=== PATIENT | male | born 1945 | race Caucasian/White ===

== ENCOUNTER → 2017-06-20 16:10 | Outpatient (CLI) | payer MEDICARE, OTHER, MEDICAID ==
[~2017-06-20 16:10] MED LIST: AMBIEN10 MG PO; LEXAPRO20 MG PO; NORVASC10 MG PO; OMEPRAZOLE40 MG PO; ZOCOR10 MG PO
[2017-07-11 09:25] VITALS: BMI 30.1
== END | disposition home or self-care (01) ==
LOC: D.CT 16:10
DX: R79.1 Abnormal coagulation profile (principal)

== ENCOUNTER 2017-07-11 08:38 | Outpatient (CLI) | payer MEDICARE, OTHER, MEDICAID ==
[~2017-07-11] VITALS: Ht 177.8 cm; Wt 95.5 kg
[2017-07-11] MEDS ORDERED: NORVASC10 MG PO (09:17)
[2017-07-11] MEDS ORDERED: LEXAPRO20 MG PO (09:17)
[2017-07-11] MEDS ORDERED: OMEPRAZOLE40 MG PO (09:17)
[2017-07-11] MEDS ORDERED: ZOCOR10 MG PO (09:17)
[2017-07-11] MEDS ORDERED: AMBIEN10 MG PO (09:17)
[2017-07-11 09:25] VITALS: BP 132/91; Ht 177.8 cm; Wt 95.5 kg
[2017-07-11 09:28] LABS: BASOPHILS 0.3 % (0-2); EOSINOPHILS 2.1 % (0-7); HEMOGLOBIN 13.9 g/dL (13.5-17.5); IMMATURE GRANULOCYTES 0.5 % (0-5); LYMPHOCYTES 40.9 % (15-50); MCHC 33.1 g/dL (31.0-37.0); MCV 84.7 fL (80.0-100.0); MEAN PLATELET VOLUME 9.4 fL (7.4-10.4); MONOCYTES 10.1 % (2-11); NEUTROPHILS 46.1 % (40-80); PLATELET COUNT 226 10x3/uL (130-400); RBC 4.96 10x6/uL (4.20-6.10); RDW 15.4 % (11.5-14.5); WBC 6.6 10x3/uL (4.8-10.8)
[2017-07-11 09:38] LABS: APTT 30.3 SECONDS (22.8-39.4); INR 1.06 (0.85-1.17); PROTIME 13.4 SECONDS (11.6-15.0)
[2017-07-11 09:39] LABS: ANION GAP 13.5 mmol/L (8-16); CALCIUM 8.6 mg/dL (8.5-10.1); CARBON DIOXIDE 28.4 mmol/L (21.0-32.0); CREATININE - SERUM 1.1 mg/dL (0.6-1.3); POTASSIUM - SERUM 3.9 mmol/L (3.5-5.1)
== END 2017-07-11 12:59 | disposition home or self-care (01) ==
LOC: D.SP 08:38 → D.CT 11:00 → D.SP 11:00
PROVIDERS: General Practice
DX: R91.8 Other nonspecific abnormal finding of lung field (principal)

== ENCOUNTER → 2018-03-02 09:11 | Outpatient (CLI) | payer MEDICARE, OTHER, MEDICAID ==
[2017-07-11 09:25] VITALS: BMI 30.1
== END | disposition home or self-care (01) ==
LOC: D.CT 03-01 14:00
DX: R91.8 Other nonspecific abnormal finding of lung field (principal)